=== PATIENT | male | born 1980 | race American Indian/Alaskan Native ===

== ENCOUNTER 2019-07-23 15:02 | Emergency (ER) | payer SELFPAY ==
[2019-07-23 17:07] LABS: Basophils # (Auto) 0.1 K/mm3 (0.0-0.1); Basophils % (Auto) 1.5 % (0.0-1.8); Eosinophils # (Auto) 0.2 K/mm3 (0.0-0.4); Eosinophils % (Auto) 2.4 % (0.0-4.3); Hematocrit 40.3 % (35.5-45.6); Hemoglobin 13.3 gm/dl (11.8-15.2); Lymphocytes # (Auto) 3.1 K/mm3 (1.2-5.4); Lymphocytes % (Auto) 34.3 % (13.4-35.0); Mean Corpuscular HGB Conc 33 % (32-34); Mean Corpuscular Volume 88 fl (84-94); Monocytes # (Auto) 0.5 K/mm3 (0.0-0.8); Monocytes % (Auto) 6.1 % (0.0-7.3); Platelet Count 288 K/mm3 (140-440); Red Blood Count 4.57 M/mm3 (3.65-5.03)
[2019-07-23 17:27] LABS: BUN/Creatinine Ratio 13; Blood Urea Nitrogen 10 mg/dL (9-20); Calcium 9.3 mg/dL (8.4-10.2); Hemolysis Index 16
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
[2019-07-24 09:39] LABS: Bilirubin,Urine NEG (Negative); Blood,Urine NEG (Negative); Color,Urine Yellow (Yellow); Mucus,Urine FEW /HPF; Protein,Urine <15 mg/dL mg/dL (Negative); Urobilinogen,Urine < 2.0 mg/dL (<2.0)
[2019-07-24 10:03] LABS: Amphetamine Screen,Urine PRESUMPTIVE NEGATIVE; Benzodiazepines Screen,Urine PRESUMPTIVE NEGATIVE; Methadone Screen,Urine PRESUMPTIVE NEGATIVE; Opiate Screen,Urine PRESUMPTIVE NEGATIVE
[2019-07-24 10:16] LABS: Cannabinoid Screen,Urine PRESUMPTIVE POSITIVE; Cocaine Screen,Urine PRESUMPTIVE POSITIVE
[2019-07-24] MEDS: HALOPERIDOL 5 MG TAB PO SCH ×2 (11:16→22:15)
[2019-07-24] MEDS: diphenhydrAMINE 25 MG CAP PO SCH (22:14)
[2019-07-25] MEDS: HALOPERIDOL 5 MG TAB PO SCH ×2 (11:00→22:18)
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
[2019-07-25] MEDS: ALPRAZolam 0.5 MG TAB PO PRN (17:36)
[2019-07-25] MEDS: traZODone 50 MG TAB PO PRN (22:18)
[2019-07-25] MEDS: diphenhydrAMINE 25 MG CAP PO SCH (22:18)
[2019-07-26] MEDS: HALOPERIDOL 5 MG TAB PO SCH ×2 (10:54→22:02)
[2019-07-26] MEDS: ALPRAZolam 0.5 MG TAB PO PRN ×2 (12:15→18:33)
--- NOTE | 2019-07-26 14:17 | Progress Note ---
Subjective - Reason for Consult Consult date: 07/26/19 Reason for consult: psychiatric assessment - Chief Complaint Chief complaint: During my interview with the patient this morning . On entering the room the patient has sheet over his head, patient refused to remove sheet. Patient is alert oriented x2. The patient does not maintain eye contact. The patient appears tense, he is alert oriented x2. When asked about suicidal ideation, the patient stated, "I am not suicidal now". When asked the last time he felt suicidal the patient stated, "I do not know". The patient denies homicidal ideations. The patient denies visual or auditory hallucinations. Patient denies any form of depressive symptoms. per chart Pt is having loud outburts , pt is speaking of killing someone but pt is speaking to someone nonexistent in room. Pt is calm and cooperative to staff. ROS: Constitutional: Negative for weight loss ENT: Negative for stridor Respiratory: Negative for cough or hemoptysis All other systems reviewed and are negative MENTAL STATUS General Appearance and Behavior: age appropriate, Mood: "ok" Affect and affective range: Flat Thought Process: Goal-directed Thought Content: guarded Speech: Low Intellectual Functioning Average Suicidal Ideation: Denies SI Homicidal Ideation: Denies HI Impulse Control: intact Insight and Judgment: Poor Memory: Normal Attention: Easily distracted Orientation: alert and oriented RECOMMENDATIONS MEDICATIONS: Continue medication on chart Risks, benefits and alternatives of medications discussed with the patient, questions answered and consent obtained from patient. PSYCHOTHERAPY: Supportive psychotherapy provided MEDICAL: Per primary team DELIRIUM PRECAUTIONS: Please re-orient patient frequently, keep lights on during the day, and minimize benzodiazepines and opiates as these medications could worsen patient's confusion. 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
[2019-07-26] MEDS: traZODone 50 MG TAB PO PRN (22:02)
[2019-07-26] MEDS: diphenhydrAMINE 25 MG CAP PO SCH (22:02)
[2019-07-27] MEDS: HALOPERIDOL 5 MG TAB PO SCH (10:25)
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
[2019-07-27] MEDS: ALPRAZolam 0.5 MG TAB PO PRN (14:29)
[2019-07-27] MEDS ORDERED: ZIPRASIDONE MESYLATE 20 MG VIAL IM ONE (18:18)
[2019-07-27 21:25] VITALS: BP 100/59
[2019-07-28] MEDS: diphenhydrAMINE 25 MG CAP PO SCH (00:17)
[2019-07-28] MEDS: HALOPERIDOL 5 MG TAB PO SCH (00:17)
== END 2019-07-28 00:40 ==
LOC: EEVIPCON 15:02 → ED 15:02
DX: F20.9 Schizophrenia, unspecified (principal)
CPT/HCPCS: 36415; 80048; 80307; 81001; 85025; 99285; J3486; 80320; G0480